=== PATIENT | female | born 1990 | race Caucasian/White ===

== ENCOUNTER → 2020-10-29 13:45 | Outpatient (BNVA) | payer MEDICAID, SELFPAY | PROVIDERS: Visit Provider Nurse Practitioner Women's Health | DX: Z01.419 Encounter for gynecological examination (general) (routine) without abnormal findings (principal); Z11.3 Encounter for screening for infections with a predominantly sexual mode of transmission; N63.0 Unspecified lump in unspecified breast; B19.20 Unspecified viral hepatitis C without hepatic coma; F19.11 Other psychoactive substance abuse, in remission; Z30.46 Encounter for surveillance of implantable subdermal contraceptive; E03.9 Hypothyroidism, unspecified | CPT/HCPCS: 87491; 87591; 87661; 88175 ==

== ENCOUNTER → 2020-11-12 12:04 | Outpatient (BNVA) | payer MEDICAID, SELFPAY | PROVIDERS: Visit Provider Nurse Practitioner Women's Health | DX: Z30.46 Encounter for surveillance of implantable subdermal contraceptive (principal) | CPT/HCPCS: 81025 ==

== ENCOUNTER → 2021-01-22 14:10 | Outpatient (BNVA) | payer BC, MEDICAID, SELFPAY | PROVIDERS: Visit Provider Nurse Practitioner Women's Health | DX: A74.9 Chlamydial infection, unspecified (principal); N76.0 Acute vaginitis; B96.89 Other specified bacterial agents as the cause of diseases classified elsewhere | CPT/HCPCS: 87491; 87591; 87661 ==

== ENCOUNTER → 2023-04-28 16:00 | Outpatient (BNVA) | payer BC, MEDICAID, SELFPAY | PROVIDERS: Visit Provider Nurse Practitioner Women's Health | DX: N89.8 Other specified noninflammatory disorders of vagina (principal); A64 Unspecified sexually transmitted disease; A74.9 Chlamydial infection, unspecified | CPT/HCPCS: 87491; 87591; 87661 ==

== ENCOUNTER 2024-06-22 23:51 | Emergency (ER) | payer MEDICAID, SELFPAY ==
[2024-06-23 00:02] VITALS: BP 124/85; PULSE 111; RESP 16; TEMP 36.7; O2SAT 98
--- NOTE | 2024-06-23 00:13 | ED_ITS ---
HPI - Wound/Laceration General: Chief Complaint: Wound/Laceration Stated Complaint: right hand lac Time Seen by Provider: 06/22/24 23:52 Source: patient Mode of arrival: ambulatory Limitations: no limitations History of Present Illness: 34-year-old female who states that she w as washing dishes a glass cup and broke and lacerated her hand she has a laceration to the dorsum of her right hand over her first knuckle. She rates her pain a 5 out of 10 she is unsure when her last tetanus was denies any other injuries Associated symptoms: Denies chills, fever(s), nausea or vomiting Related Data Previous Rx's Medication Instructions Recorded metronidazole 500 mg tablet 500 mg PO BID 7 days #14 tabs 05/08/24 Allergies Allergy/AdvReac Type Severity Reaction Status Date / Time No Known Allergies Allergy Verified 06/23/24 00:06 Review of Systems Const: Denies: fever(s), chills, body aches or change in appetite Card: Denies: chest pain Resp: Denies: dyspnea GI: Denies: abdominal pain, nausea, vomiting or diarrhea Musc: Reports: extremity pain; Denies: neck pain or back pain Skin/Breast: Denies: rash Neuro: Denies: headache(s) PFSH ED PFSH: Medical History Psychiatric care History of intravenous drug abuse No pertinent past medical history neghx: htn,dm,dvt/pe PCP: None Hypothyroid Surgical History Hx of appendectomy Family History Grandmother Diabetes Maternal Family/Other Hypertension Maternal side in general Stroke Maternal side Thyroid disease Maternal side Denies family history of Colon cancer Ovarian cancer Heart disease Hypercholesteremia Breast cancer Uterine cancer Social History Smoking and tobacco/nicotine status: unknown if used tobacco/nicotine Physical Exam Const: COMMON NORMALS: no acute distress, patient oriented x3 and healthy appearing HENMT: COMMON NORMALS: normocephalic and atraumatic HEAD & SCALP: normocephalic and atraumatic Eye: COMMON NORMALS: conjunctivae normal CONJUNCTIVA: Yes conjunctivae normal Neck/C-Spine: COMMON NORMALS: full ROM and supple Chest: COMMONS NORMALS: normal inspection of the chest Resp: COMMON NORMALS: normal respiratory effort Extremity: COMMON NORMALS: full ROM Neuro: COMMON NORMALS: patient oriented x3, moves all extremities and no focal motor deficits Psych: COMMON NORMALS: mental status grossly normal, Normal thought process present and cooperative THOUGHT PROCESS: Normal thought process present Skin: COMMON NORMALS: no rashes or lesions noted NARRATIVE SKIN EXAM: 3 cm laceration to the dorsum of the beatty d over the knuckle of the right index fi nger no tendon laceration good strength with extension of the right finger GENERAL SKIN EXAM: no rashes or lesions noted Procedures Laceration Laceration 1: Site: hand Side (If applicable): right Size (cm): 3 Description: linear Depth: simple, single layer Local Anesthetic: lidocaine 1% Amount of anesthesia used (mL): 10 Pre-repair: wound explored, irrigated extensively and deep structures intact Skin layer closed with: nylon Size (cm): 4-0 Number of sutures: 7 Technique: simple, interrupted Course Vital Signs: Vital signs: Vital Signs Temperature 98.0 F 06/23/24 00:02 Pulse Rate 116 H 06/23/24 00:20 Respiratory Rate 18 06/23/24 00:20 Blood Pressure 145/92 06/23/24 00:20 Pulse Oximetry 99 06/23/24 00:20 Oxygen Delivery Me thod Room Air 06/23/24 00:20 MDM - Wound/Laceration Medical Decision Making Patient presents with head laceration no signs of tendon involvement did repair the laceration she is have sutures removed in 10 days return if worsening. Medical Records I reviewed the patient's medical records. No radiology studies performed this visit Discharge Plan Discharge Patient Disposition: Home Clinical Impression: Laceration Condition: Stable Prescriptions: No Action metronidazole 500 mg tablet 500 mg PO BID 7 Days Qty: 14 0RF Discharge Orders: Discharge ED (Routine); Ordered 06/23/24 Ordered By: Alena Sevilla Discharge Diet: Advance as tolerated Discharge Activity: Resume usual activity Patient Instructions: Laceration (ED) Activity Restrictions/Additional Instructions: suture removal in 10 days Coding Level of Care Code ED [employer] for Jose Juan Taylor
[2024-06-23] MEDS: HYDROcodone-acetaminophen 5-325 mg Tablet 1 TAB PO (00:17)
[2024-06-23] MEDS: tetanus-dipt-pertussis 0.5 mL SDV IM (00:18)
[2024-06-23 00:20] VITALS: BP 145/92; PULSE 116; RESP 18; O2SAT 99
--- NOTE | 2024-06-23 00:22 | PC.NURSE ---
Per Dr Pruett- wound rinsed out thoroughly in sink. tolerated well by patient.
[2024-06-23 00:43] VITALS: BP 119/75; PULSE 97; RESP 16; O2SAT 96
== END 2024-06-23 00:44 | disposition home or self-care (01) ==
PROVIDERS: Emergency Provider Emergency Medicine
DX: S61.411A Laceration without foreign body of right hand, initial encounter (principal); W25.XXXA Contact with sharp glass, initial encounter; Y93.G1 Activity, food preparation and clean up; Z23 Encounter for immunization
CPT/HCPCS: 12002; 90471; 90715; 99283

== ENCOUNTER → 2024-08-20 13:36 | Outpatient (BNVA) | payer MEDICAID, SELFPAY | PROVIDERS: PCP Family Medicine; Visit Provider Nurse Practitioner | DX: R39.9 Unspecified symptoms and signs involving the genitourinary system (principal) | CPT/HCPCS: 81000; 87086 ==

== ENCOUNTER → 2024-10-01 11:27 | Outpatient (BNVA) | payer MEDICAID, SELFPAY | PROVIDERS: PCP Family Medicine; Visit Provider Nurse Practitioner | DX: Z20.2 Contact with and (suspected) exposure to infections with a predominantly sexual mode of transmission (principal); R39.9 Unspecified symptoms and signs involving the genitourinary system | CPT/HCPCS: 81000; 87086; 87491; 87591; 87661 ==

== ENCOUNTER 2024-11-15 10:37 | Outpatient (CLI) | payer MEDICAID, SELFPAY ==
[2024-11-15 11:33] LABS: Alanine Aminotransferase 30 U/L (0-33); Albumin Level 4.5 g/dL (3.5-5.2); Alkaline Phosphatase 75 U/L (35-105); Anion Gap 14.1 (5-19); Aspartate Amino Transferase 17 U/L (0-32); Blood Urea Nitrogen 13 mg/dL (6-20); Calcium 9.2 mg/dL (8.5-10.5); Carbon Dioxide 24 mmol/L (22-29); Chloride 105 mmol/L (98-107); Chol HDL Ratio 2.66 mg/dL (0.0-4.40); Cholesterol 181 mg/dL (0-200); Globulin 3.1 g/dL (1.3-4.6); Glucose 90 mg/dL (65-115); HDL Cholesterol 68 mg/dL (60-100); LDL Cholesterol Calculated 93 mg/dL (50-129); LDL HDL Ratio 1.37 RATIO (0.00-3.22); Osmolality Calculated 288 mOsm/kg (285-295); Potassium 4.1 mmol/L (3.5-5.1); Sodium 139 mmol/L (136-145); Total Bilirubin 0.3 mg/dL (0.15-1.2); Total Protein 7.6 g/dL (6.6-8.7); Triglycerides 98 mg/dL (0-150)
== END 2024-11-15 10:38 | disposition home or self-care (01) ==
LOC: LAB 10:42
PROVIDERS: PCP Family Medicine; Visit Provider Nurse Practitioner Family
DX: L40.0 Psoriasis vulgaris (principal)
CPT/HCPCS: 36415; 80048; 80061; 80076

== ENCOUNTER → 2025-06-20 14:56 | Outpatient (BNVA) | payer MEDICAID, SELFPAY | PROVIDERS: PCP Family Medicine; Visit Provider Nurse Practitioner | DX: Z20.2 Contact with and (suspected) exposure to infections with a predominantly sexual mode of transmission (principal) | CPT/HCPCS: 81513; 87481; 87491; 87591; 87661 ==

== ENCOUNTER 2025-09-09 14:04 | Outpatient (CLI) | payer MEDICAID, SELFPAY ==
[2025-09-09 15:05] LABS: Hematocrit 42.9 % (36-47); Hemoglobin 14.20 g/dL (11.27-16.99); Mean Corpuscular HGB Conc 33.1 g/dL (30-55); Mean Corpuscular Hemoglobin 29.3 pg (27-33); Mean Corpuscular Volume 88.6 fl (85-98); Nucleated Red Blood Cells % 0 %; Platelet Count 387 10^3/cmm (157-399); Red Blood Count 4.84 10^6/uL (3.85-5.65); White Blood Count 6.35 10^3/uL (3.29-11.43)
[2025-09-09 15:33] LABS: Albumin Level 4.7 g/dL (3.5-5.2); Alkaline Phosphatase 84 U/L (35-105); Chloride 101 mmol/L (98-107); Potassium 4.3 mmol/L (3.5-5.1); Sodium 135 mmol/L (136-145)
[2025-09-09 16:10] LABS: HIV 1 & 2 Antigen Non-Reactive (Non-Reactiv)
[2025-09-09 16:30] LABS: Anion Gap 16.3 (5-19); Aspartate Amino Transferase 14 U/L (0-32); Blood Urea Nitrogen 11 mg/dL (6-20); Calcium 9.5 mg/dL (8.5-10.5); Carbon Dioxide 22 mmol/L (22-29); Cholesterol 198 mg/dL (0-200); Globulin 3.3 g/dL (1.3-4.6); Glucose 98 mg/dL (65-115); HDL Cholesterol 75 mg/dL (60-100); Osmolality Calculated 279 mOsm/kg (285-295); Total Protein 8.0 g/dL (6.6-8.7); Triglycerides 58 mg/dL (0-150)
[2025-09-09 20:55] LABS: Alanine Aminotransferase 18 U/L (0-33)
[2025-09-09 22:58] LABS: Hepatitis B Surface Antigen Non-Reactive (Nonreactive)
== END 2025-09-09 14:05 | disposition home or self-care (01) ==
PROVIDERS: PCP Family Medicine; Visit Provider Nurse Practitioner Family
DX: L40.0 Psoriasis vulgaris (principal); L29.89 Other pruritus; L40.59 Other psoriatic arthropathy
CPT/HCPCS: 36415; 80048; 80061; 80076; 84702; 85025; 86480; 86704; 86706; 86803; 87340; 87522; 87806